=== PATIENT | female | born 1940 | race Caucasian/White ===

== ENCOUNTER → 2017-08-26 | Outpatient (CLI) | payer MEDICARE ==
--- NOTE | 2017-08-27 14:10 | MM ---
Reason for exam: screening (asymptomatic). Last mammogram was performed 1 year and 11 months ago. History: Patient is postmenopausal. Benign US LT VAD breast biopsy of the left breast, May 12, 2012. Physical Findings: A clinical breast exam by your physician is recommended on an annual basis and results should be correlated with mammographic findings. MG Screening Mammo w CAD Bilateral CC and MLO view(s) were taken. Prior study comparison: September 26, 2015, bilateral MG screening mammo w CAD. June 20, 2014, bilateral MG screening mammo w CAD. The breast tissue is heterogeneously dense. This may lower the sensitivity of mammography. Previous mammotome biopsy in the left breast. No significant changes when compared with prior studies. ASSESSMENT: Benign, BI-RAD 2 RECOMMENDATION: Routine screening mammogram of both breasts in 1 year.
== END | disposition home or self-care (01) ==
LOC: RADMAMWWP 10:57
PROVIDERS: ATTEND Family Medicine
DX: Z12.31 Encounter for screening mammogram for malignant neoplasm of breast (principal)

== ENCOUNTER 2019-10-02 10:19 | Inpatient (IN) | payer MEDICARE ==
[2019-10-02] MEDS ORDERED: ASPIRIN 81 MG PO STA (10:31)
[2019-10-02] MEDS ORDERED: IPRATROPIUM-ALBUTEROL 3 ML NEB INHALATION STA (10:39)
--- NOTE | 2019-10-02 10:39 | ED ---
General Adult HPI - General Source: patient, EMS, RN notes reviewed Mode of arrival: EMS Limitations: no limitations <Tae Faustin - Last Filed: 10/02/19 12:34> <Yazan Crain - Last Filed: 10/02/19 12:47> - General Stated complaint: SOB Time Seen by Provider: 10/02/19 10:29 - History of Present Illness Initial comments: This a 79-year-old female presents emergency Department via EMS with chief complaint of shortness breath, chest pain, hyperglycemia. Patient states that she's had a cough congestion last few days states that she is taking Mucinex with was not helping. Patient states she has some tightness across her chest. Patient denies any history of COPD or asthma. Patient states that she's had a prior open-heart surgery. Patient states her cough is productive. Patient does admit that history of hypertension hyperlipidemia diabetes but states that she usually just didn't control. Patient on her blood sugar over 400 today. Patient does admit that she feels very weak. Denies any current headache. Dizziness. Patient found to be in A. fib RVR by EMS. Patient denies any history of A. fib. Patient is not taking anticoagulants. Patient has no current abdominal pain. (Tae Faustin) - Related Data Allergies Allergy/AdvReac Type Severity Reaction Status Date / Time Sulfa (Sulfonamide Allergy Unknown Verified 10/02/19 10:49 Antibiotics) Review of Systems ROS Other: All systems not noted in ROS Statement are negative. <Tae Faustin - Last Filed: 10/02/19 12:34> ROS Other: All systems not noted in ROS Statement are negative. <Yazan Crain - Last Filed: 10/02/19 12:47> ROS Statement: Those systems with pertinent positive or pertinent negative responses have been documented in the HPI. General Exam General appearance: alert, in no apparent distress Head exam: Present: atraumatic, normocephalic, normal inspection Eye exam: Present: normal appearance, PERRL, EOMI. Absent: scleral icterus, conjunctival injection, periorbital swelling ENT exam: Present: normal oropharynx, mucous membranes moist Neck exam: Present: normal inspection, full ROM. Absent: tenderness, men ingismus, lymphadenopathy Respiratory exam: Present: wheezes, decreased breath sounds. Absent: normal lung sounds bilaterally, respiratory distress, rales, rhonchi, stridor Cardiovascular Exam: Present: tachycardia, irregular rhythm, normal heart so unds. Absent: regular rate, normal rhythm, systolic murmur, diastolic murmur, rubs, gallop, clicks GI/Abdominal exam: Present: soft, normal bowel sounds. Absent: distended, tenderness, guarding, rebound, rigid Neurological exam: Present: alert, oriented X3, CN II-XII intact Skin exam: Present: warm, dry, intact, normal color. Absent: rash <Tae Faustin - Last Filed: 10/02/19 12:34> Course Vital Signs 10/02/19 10/02/19 10/02/19 10:44 10:51 11:07 Temperature 98 F Pulse Rate 106 H 97 98 Respiratory 20 Rate Blood Pressure 124/76 O2 Sat by Pulse 95 Oximetry EKG Findings - EKG Comments: EKG Findings:: EKG performed at 11:06 normal sinus rhythm left axis deviation left ventricular hypertrophy rate of 94 ME 18 QRS 108 QT status QTC 390/47. EKG, rhythm strips prior to arrival by EMS shows A. fib RVR <Tae Faustin - Last Filed: 10/02/19 12:34> Medical Decision Making - Lab Data Result diagrams: 10/02/19 10:56 10/02/19 10:56 <Tae Faustin - Last Filed: 10/02/19 12:34> - Lab Data Result diagrams: 10/02/19 10:56 10/02/19 10:56 <Yazan Crain - Last Filed: 10/02/19 12:47> - Medical Decision Making Patient will be admitted for acute CHF, hyperglycemia, metabolic acidosis. (Tae Fuastin) patient was reevaluated by myself, Dr. Crain. Patient resting comfortably in bed. Patient and family updated on results and plan. Case was discussed in detail with Dr. Oropeza, who will admit covering for Dr. Moreno. Cardiology will be placed on consult. Heparin will be ordered. Patient will receive nitroglycerin and Lasix. (Yazan Crain) - Lab Data Lab Results 10/02/19 10/02/19 10/02/19 Range/Units 10:56 10:56 10:56 WBC 8.3 (3.8-10.6) k/uL RBC 4.08 (3.80-5.40) m/uL Hgb 13.0 (11.4-16.0) gm/dL Hct 39.9 (34.0-46.0) % MCV 97.8 (80.0-100.0) fL MCH 31.8 (25.0-35.0) pg MCHC 32.5 (31.0-37.0) g/dL RDW 13.0 (11.5-15.5) % Plt Count 266 (150-450) k/uL Neutrophils % 80 % Lymphocytes % 15 % Monocytes % 5 % Eosinophils % 0 % Basophils % 0 % Neutrophils # 6.6 (1.3-7.7) k/uL Lymphocytes # 1.2 (1.0-4.8) k/uL Monocytes # 0.4 (0-1.0) k/uL Eosinophils # 0.0 (0-0.7) k/uL Basophils # 0.0 (0-0.2) k/uL PT (9.0-12.0) sec INR (<1.2) APTT (22.0-30.0) sec VBG pH (7.31-7.41) VBG pCO2 (37-51) mmHg VBG HCO3 (24-28) mmol/L Sodium 136 L (137-145) mmol/L Potassium 5.1 (3.5-5.1) mmol/L Chloride 108 H (98-107) mmol/L Carbon Dioxide 17 L (22-30) mmol/L Anion Gap 11 mmol/L BUN 21 H (7-17) mg/dL Creatinine 0.86 (0.52-1.04) mg/dL Est GFR (CKD-EPI)AfAm 75 (>60 ml/min/1.73 sqM) Est GFR (CKD-EPI)NonAf 65 (>60 ml/min/1.73 sqM) Glucose 301 H (74-99) mg/dL Plasma Lactic Acid Heath 3.9 H* (0.7-2.0) mmol/L Calcium 9.3 (8.4-10.2) mg/dL Magnesium 1.7 (1.6-2.3) mg/dL Total Bilirubin 1.3 (0.2-1.3) mg/dL AST 64 H (14-36) U/L ALT 40 H (4-34) U/L Alkaline Phosphatase 59 (38-126) U/L Troponin I (0.000-0.034) ng/mL NT-Pro-B Natriuret Pep pg/mL Total Protein 6.1 L (6.3-8.2) g/dL Albumin 3.7 (3.5-5.0) g/dL Lipase 43 (23-300) U/L Acetone, Qual Negative (Negative) 10/02/19 10/02/19 10/02/19 Range/Units 10:56 10:56 10:56 WBC (3.8-10.6) k/uL RBC (3.80-5.40) m/uL Hgb (11.4-16.0) gm/dL Hct (34.0-46.0) % MCV (80.0-100.0) fL MCH (25.0-35.0) pg MCHC (31.0-37.0) g/dL RDW (11.5-15.5) % Plt Count (150-450) k/uL Neutrophils % % Lymphocytes % % Monocytes % % Eosinophils % % Basophils % % Neutrophils # (1.3-7.7) k/uL Lymphocytes # (1.0-4.8) k/uL Monocytes # (0-1.0) k/uL Eosinophils # (0-0.7) k/uL Basophils # (0-0.2) k/uL PT 11.3 (9.0-12.0) sec INR 1.1 (<1.2) APTT 21.1 L (22.0-30.0) sec VBG pH (7.31-7.41) VBG pCO2 (37-51) mmHg VBG HCO3 (24-28) mmol/L Sodium (137-145) mmol/L Potassium (3.5-5.1) mmol/L Chloride (98-107) mmol/L Carbon Dioxide (22-30) mmol/L Anion Gap mmol/L BUN (7-17) mg/dL Creatinine (0.52-1.04) mg/dL Est GFR (CKD-EPI)AfAm (>60 ml/min/1.73 sqM) Est GFR (CKD-EPI)NonAf (>60 ml/min/1.73 sqM) Glucose (74-99) mg/dL Plasma Lactic Acid Heath (0.7-2.0) mmol/L Calcium (8.4-10.2) mg/dL Magnesium (1.6-2.3) mg/dL Total Bilirubin (0.2-1.3) mg/dL AST (14-36) U/L ALT (4-34) U/L Alkaline Phosphatase (38-126) U/L Troponin I 0.849 H* (0.000-0.034) ng/mL NT-Pro-B Natriuret Pep 60068 pg/mL Total Protein (6.3-8.2) g/dL Albumin (3.5-5.0) g/dL Lipase (23-300) U/L Acetone, Qual (Negative) 10/02/19 Range/Units 10:57 WBC (3.8-10.6) k/uL RBC (3.80-5.40) m/uL Hgb (11.4-16.0) gm/dL Hct (34.0-46.0) % MCV (80.0-100.0) fL MCH (25.0-35.0) pg MCHC (31.0-37.0) g/dL RDW (11.5-15.5) % Plt Count (150-450) k/uL Neutrophils % % Lymphocytes % % Monocytes % % Eosinophils % % Basophils % % Neutrophils # (1.3-7.7) k/uL Lymphocytes # (1.0-4.8) k/uL Monocytes # (0-1.0) k/uL Eosinophils # (0-0.7) k/uL Basophils # (0-0.2) k/uL PT (9.0-12.0) sec INR (<1.2) APTT (22.0-30.0) sec VBG pH 7.25 L (7.31-7.41) VBG pCO2 38 (37-51) mmHg VBG HCO3 16 L (24-28) mmol/L Sodium (137-145) mmol/L Potassium (3.5-5.1) mmol/L Chloride (98-107) mmol/L Carbon Dioxide (22-30) mmol/L Anion Gap mmol/L BUN (7-17) mg/dL Creatinine (0.52-1.04) mg/dL Est GFR (CKD-EPI)AfAm (>60 ml/min/1.73 sqM) Est GFR (CKD-EPI)NonAf (>60 ml/min/1.73 sqM) Glucose (74-99) mg/dL Plasma Lactic Acid Heath (0.7-2.0) mmol/L Calcium (8.4-10.2) mg/dL Magnesium (1.6-2.3) mg/dL Total Bilirubin (0.2-1.3) mg/dL AST (14-36) U/L ALT (4-34) U/L Alkaline Phosphatase (38-126) U/L Troponin I (0.000-0.034) ng/mL NT-Pro-B Natriuret Pep pg/mL Total Protein (6.3-8.2) g/dL Albumin (3.5-5.0) g/dL Lipase (23-300) U/L Acetone, Qual (Negative) Critical Care Time Critical Care Time: Yes Total Critical Care Time: 35 <Tae Faustin - Last Filed: 10/02/19 12:34> Critical Care Time: Total 35 minutes of critical care time were used to initially evaluated patient, reviewed past medical history, discuss history with EMS, family. Labs EKG chest x-ray were ordered. Patient's found a acute CHF exacerbation she has proximal atrial fibrillation. Patient was given aspirins, started on heparin at this time. Patient was given 40 of Lasix IV for CHF exacerbation. Patient does have lactic acidosis which appears to be a metabolic acidosis related to hypoglycemia. She was given small amount of IV fluids prior arrival. Patient we treated medically. Patient case discussed with admitting physician, consult cardiology (Tae Faustin) Disposition <Tae Faustin - Last Filed: 10/02/19 12:34> <Yazan Crain - Last Filed: 10/02/19 12:47> Clinical Impression: Congestive heart failure, Metabolic acidosis, Hyperglycemia, Paroxysmal atrial fibrillation with rapid ventricular response, Elevated troponin Disposition: ADMITTED IP TO THIS HOSP Condition: Serious Referrals: Velia Moreno DO [Primary Care Provider] - 1-2 days
[2019-10-02 11:12] LABS: VBG PH 7.25 (7.31-7.41)
[2019-10-02 11:22] LABS: ALT 40 U/L (4-34); AST 64 U/L (14-36); African American GFR (CKD) 75 (>60 ml/min/1.73 sqM); Albumin 3.7 g/dL (3.5-5.0); Alkaline Phosphatase 59 U/L (38-126); Anion Gap 11 mmol/L; Blood Urea Nitrogen 21 mg/dL (7-17); Calcium 9.3 mg/dL (8.4-10.2); Carbon Dioxide 17 mmol/L (22-30); Chloride 108 mmol/L (98-107); Glucose 301 mg/dL (74-99); Magnesium 1.7 mg/dL (1.6-2.3); Non-African American GFR(CKD) 65 (>60 ml/min/1.73 sqM); Potassium 5.1 mmol/L (3.5-5.1); Sodium 136 mmol/L (137-145); Total Bilirubin 1.3 mg/dL (0.2-1.3); Total Protein 6.1 g/dL (6.3-8.2)
[2019-10-02 11:30] LABS: INR 1.1 (<1.2); Prothrombin Time 11.3 sec (9.0-12.0)
[2019-10-02 11:35] LABS: Basophils % (A) 0 %; Eosinophils % (A) 0 %; HCT 39.9 % (34.0-46.0); Lymphocytes # (A) 1.2 k/uL (1.0-4.8); Lymphocytes % (A) 15 %; MCH 31.8 pg (25.0-35.0); MCHC 32.5 g/dL (31.0-37.0); MCV 97.8 fL (80.0-100.0); Mean Platelet Volume 8.5; Monocytes # (A) 0.4 k/uL (0-1.0); Monocytes % (A) 5 %; Neutrophils # (A) 6.6 k/uL (1.3-7.7); Neutrophils % (A) 80 %; Platelet Count 266 k/uL (150-450); RBC 4.08 m/uL (3.80-5.40); WBC 8.3 k/uL (3.8-10.6)
[2019-10-02 11:39] LABS: Partial Thromboplastin Time 21.1 sec (22.0-30.0)
--- NOTE | 2019-10-02 12:00 | XR ---
EXAMINATION TYPE: XR chest 2V DATE OF EXAM: 10/02/2019 HISTORY: Chest Pain. REFERENCE: Previous study dated 11/20/2011. FINDINGS: There has been a midline sternotomy. There is multichamber cardiac enlargement. There is right basilar airspace disease. I cannot exclude small effusions. There is vascular congestion and mild interstitial change. IMPRESSION: 1. CARDIOMEGALY AND CHANGES OF CONGESTIVE HEART FAILURE. 2. CONFLUENT OPACITY OF THE RIGHT LUNG BASE MAY REPRESENT CONFLUENT EDEMA OR PNEUMONIA.
[2019-10-02] MEDS ORDERED: FUROSEMIDE 10 MG/ML 4 ML VIAL IV STA (12:34)
[2019-10-02] MEDS ORDERED: NITROGLYCERIN OINT 1 INCH/GM PACKET TOPICAL STA (12:40)
[2019-10-02] MEDS ORDERED: HEPARIN SODIUM,PORCINE 5,000 UNIT/ML 1 ML VIAL IV ONE (12:42)
[2019-10-02] MEDS ORDERED: HEPARIN SODIUM,PORCINE 5,000 UNIT/ML 1 ML VIAL IV PRN (12:42)
[2019-10-02] MEDS: HEPARIN SOD,PORK IN 0.45% NACL 25,000 UNIT in 0.45% NACL 1 250ML.BAG IV SCH (13:00)
--- NOTE | 2019-10-02 15:24 | P.HPIM ---
History of Present Illness 73-year-old female was brought in by family members because of shortness of breath which started last Thursday which is about 4-5 days ago along with orthopnea unable to get much of the history regarding proximal nocturnal dyspnea patient has hearing problems. Patient will also comparing of tightness of chest denied any diaphoresis associated with that. Patient does have elevated troponin found to have pulmonary edema. Patient does have history of coronary artery disease CABG does not appear to be taking any medications patient appears to be noncompliant and patient does smoke still. Does have COPD doesn't wear any oxygen at home is also complaining of cough with clear sputum production. Patient denied any fever chills and there is no evidence of pneumonia but a small infiltrate that may be still pulmonary edema. Patient is found to have elevated BNP of 14,300 with elevated JVD and clinical exam and crackles on lung exam consistent with heart failure exacerbation patient does have heart failure history although I do not do not have any echocardiogram available at this time which is being ordered patient also has elevated troponins with T-wave inversions in lead 1 and aVL. Cardiology is being consulted and patient is being started on heparin aspirin, statin and IV Lasix. Patient has elevated blood sugars in 300s A1c is being obtained patient was started on sliding scale insulin as well. Patient had elevated lactic acid is no evidence of sepsis considering her old heart failure and shortness of breath going to do her Lasix and repeat lactic acid again. Patient will not be given any fluids because of above-mentioned reasons. Review of Systems REVIEW OF SYSTEMS: CONSTITUTIONAL: No fever, no malaise, no fatigue. HEENT: No recent visual problems or hearing problems. Denied any sore throat. CARDIOVASCULAR: No no palpitations, no syncope. PULMONARY: no hemoptysis. GASTROINTESTINAL: No diarrhea, no nausea, no vomiting, no abdominal pain. NEUROLOGICAL: No headaches, no weakness, no numbness. HEMATOLOGICAL: Denies any bleeding or petechiae. GENITOURINARY: Denies any burning micturition, frequency, or urgency. MUSCULOSKELETAL/RHEUMATOLOGICAL: Denies any joint pain, swelling, or any muscle pain. ENDOCRINE: Denies any polyuria or polydipsia. The rest of the 14-point review of systems is negative. Past Medical History Past Medical History: Heart Failure, Diabetes Mellitus History of Any Multi-Drug Resistant Organisms: None Reported Past Surgical History: Coronary Bypass/CABG Additional Past Surgical History / Comment(s): TRIPLE BYPASS Past Psychological History: No Psychological Hx Reported Smoking Status: Current every day smoker Past Alcohol Use History: None Reported Past Drug Use History: None Reported Medications and Allergies Home Medications Medication Instructions Recorded Confirmed Type Aspirin EC [Ecotrin Low Dose] 81 mg PO HS 10/02/19 10/02/19 History guaiFENesin [Mucinex] 600 mg PO Q12H PRN 10/02/19 10/02/19 History Allergies Allergy/AdvReac Type Severity Reaction Status Date / Time Sulfa (Sulfonamide Allergy Unknown Verified 10/02/19 14:19 Antibiotics) Physical Exam Vitals: Vital Signs Temp Pulse Resp BP Pulse Ox 10/02/19 13:28 98.1 F 99 20 139/86 97 10/02/19 11:07 98 10/02/19 10:51 97 10/02/19 10:44 98 F 106 H 20 124/76 95 Intake and Output 10/02/19 10/02/19 10/02/19 06:59 14:59 22:59 Other: Weight 54.431 kg PHYSICAL EXAMINATION: GENERAL: The patient is alert and oriented x3, not in any acute distress. Well developed, well nourished. HEENT: Pupils are round and equally reacting to light. EOMI. No scleral icterus. No conjunctival pallor. Normocephalic, atraumatic. No pharyngeal erythema. No thyromegaly. CARDIOVASCULAR: S1 and S2 present. No murmurs, rubs, or gallops. Patient does have elevated JVD extending up to the years PULMONARY: Bilateral crackles on exam no wheezing was appreciated ABDOMEN: Soft, nontender, nondistended, normoactive bowel sounds. No palpable organomegaly. MUSCULOSKELETAL: No joint swelling or deformity. EXTREMITIES: No cyanosis, clubbing, or pedal edema. NEUROLOGICAL: Gross neurological examination did not reveal any focal deficits. SKIN: No rashes. Results CBC & Chem 7: 10/02/19 10:56 10/02/19 10:56 Labs: Abnormal Lab Results - Last 24 Hours (Table) 10/02/19 10/02/19 10/02/19 Range/Units 10:56 10:56 10:56 APTT 21.1 L (22.0-30.0) sec VBG pH (7.31-7.41) VBG HCO3 (24-28) mmol/L Sodium 136 L (137-145) mmol/L Chloride 108 H (98-107) mmol/L Carbon Dioxide 17 L (22-30) mmol/L BUN 21 H (7-17) mg/dL Glucose 301 H (74-99) mg/dL Plasma Lactic Acid Heath 3.9 H* (0.7-2.0) mmol/L AST 64 H (14-36) U/L ALT 40 H (4-34) U/L Troponin I (0.000-0.034) ng/mL Total Protein 6.1 L (6.3-8.2) g/dL 10/02/19 10/02/19 Range/Units 10:56 10:57 APTT (22.0-30.0) sec VBG pH 7.25 L (7.31-7.41) VBG HCO3 16 L (24-28) mmol/L Sodium (137-145) mmol/L Chloride (98-107) mmol/L Carbon Dioxide (22-30) mmol/L BUN (7-17) mg/dL Glucose (74-99) mg/dL Plasma Lactic Acid Heath (0.7-2.0) mmol/L AST (14-36) U/L ALT (4-34) U/L Troponin I 0.849 H* (0.000-0.034) ng/mL Total Protein (6.3-8.2) g/dL Thrombosis Risk Factor Assmnt - Choose All That Apply Any of the Below Risk Factors Present?: Yes Each Factor Represents 1 point: Abnormal pulmonary function (COPD) Other Risk Factors: Yes Each Risk Factor Represents 3 Points: Age 75 years or older Thrombosis Risk Factor Assessment Total Risk Factor Score: 4 Thrombosis Risk Factor Assessment Level: Moderate Risk Assessment and Plan Plan: -Shortness of breath: Possibly secondary to congestive heart failure exacerbation patient may have systolic dysfunction although her EF is not known echocardiogram is being obtained and patient will be started on Lasix in spite of lactic acidosis and we'll repeat lactic acid again. -Mildly elevated troponin with chest pressure and EKG changes cannot rule out non-ST elevation myocardial infarction, cardiology was consulted patient was started on aspirin, heparin and nitro patch. -Lactic acidosis: Secondary to decreased organ perfusion considering her CHF I believe in spite of Lasix has lactic acid was still come down because of which I'll continue with Lasix and the repeat lactic acid in couple hours -Coronary artery disease his history of CABG in the past -Nicotine abuse: Counseling was provided -COPD without any acute exacerbation -Possible new-onset diabetes with us will obtain hemoglobin A1c patient was started on sliding scale insulin for now patient has highly elevated blood sugars of 300 Mildly elevated liver enzymes secondary to hepatic congestion expected to imp rove with Lasix -Anion gap metabolic acidosis secondary to lactic acidosis
[2019-10-02 16:57] LABS: Glucose,Whole Blood 219 mg/dL (75-99)
[2019-10-02] MEDS: INSULIN ASPART (NovoLOG) 100 UNIT/ML VIAL SQ SCH ×2 (17:13→21:39)
[2019-10-02 20:16] LABS: Glucose,Whole Blood 255 mg/dL (75-99)
[2019-10-02] MEDS: FUROSEMIDE 10 MG/ML 4 ML VIAL IV SCH (21:38)
[2019-10-02] MEDS: traMADol 50 MG TAB PO SCH (21:38)
[2019-10-03 06:10] LABS: Glucose,Whole Blood 201 mg/dL (75-99)
[2019-10-03 06:51] LABS: Basophils % (A) 0 %; Eosinophils % (A) 0 %; HCT 40.6 % (34.0-46.0); HGB 13.3 gm/dL (11.4-16.0); Lymphocytes # (A) 1.4 k/uL (1.0-4.8); Lymphocytes % (A) 14 %; MCH 32.3 pg (25.0-35.0); MCHC 32.9 g/dL (31.0-37.0); MCV 98.3 fL (80.0-100.0); Mean Platelet Volume 8.7; Monocytes # (A) 0.8 k/uL (0-1.0); Monocytes % (A) 8 %; Neutrophils # (A) 7.8 k/uL (1.3-7.7); Neutrophils % (A) 77 %; Platelet Count 303 k/uL (150-450); RBC 4.13 m/uL (3.80-5.40); RDW 13.2 % (11.5-15.5); WBC 10.2 k/uL (3.8-10.6)
[2019-10-03 06:59] LABS: INR 1.1 (<1.2); Partial Thromboplastin Time 36.3 sec (22.0-30.0); Prothrombin Time 11.5 sec (9.0-12.0)
[2019-10-03 07:14] LABS: Calcium 9.7 mg/dL (8.4-10.2)
[2019-10-03] MEDS: INSULIN ASPART (NovoLOG) 100 UNIT/ML VIAL SQ SCH ×4 (08:20→20:39)
--- NOTE | 2019-10-03 08:38 | P.CRDCN ---
History of Present Illness Consult date: 10/03/19 Requesting physician: Christofer Oropeza Consult reason: non-Q-wave AK Chief complaint: Exertional shortness of breath and shoulder discomfort History of present illness: This is a 79-year-old female with known history of coronary artery disease, underwent quadruple bypass surgery in 2001, history of hyperlipidemia, hypertension, nicotine dependence, patient continues to smoke, she is a nondiabetic. He is fairly active 79-year-old, lives on her own, goes shopping. Over the last 3 days, the patient has noticed herself to be exertionally more and more short of breath, she also developed some discomfort across her upper scapula and shoulder areas. Patient states just walking to her bathroom she can hardly breathe or even sitting up in bed and became quite severe. She came to the hospital for further evaluation and treatment. Her initial EKG on presentation here showed a normal sinus rhythm with with mild ST elevation noted in the anterior leads and T-wave inversion in the lateral leads. Subsequent EKG continued to show changes. Chest x-ray showed cardiomegaly and changes of congestive heart failure. Blood pressure on arrival here 124/76 with a heart rate of 106, 95% on 2 L of oxygen. Blood pressure this morning 146/76, 92% on 2 L of oxygen, heart rate 106, afebrile. White blood cell count 8.3 on arrival, 10.2 this morning, hemoglobin 13.3, platelet count 303. PH on arrival 7.2, pCO2 38, HCO3 16. Sodium 136, potassium 5.0, BUN 30, creatinine 1.1. Plasma lactic acid 4.1 on admission, 1.5 this morning. AST 64, ALT 40, magnesium 1.7. BNP level 14,300. Troponin 0.84, 15.3, 25.1. At the time of examination this morning, patient does state that her breathing has improved significantly from arrival here. Although just getting the patient is sitting up in bed to examine her she becomes extremely short of breath. Patient has been initiated on IV hep kyler, she's also on IV Lasix. Patient has been taking an aspirin daily at home, prior to arrival. She is not on a statin or any other medications. She follows with Dr. 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 Patient is extremely hard of hearing. Past Medical History Past Medical History: Heart Failure, Diabetes Mellitus History of Any Multi-Drug Resistant Organisms: None Reported Past Surgical History: Coronary Bypass/CABG Additional Past Surgical History / Comment(s): TRIPLE BYPASS Past Psychological History: No Psychological Hx Reported Smoking Status: Current every day smoker Past Alcohol Use History: None Reported Past Drug Use History: None Reported Medications and Allergies Home Medications Medication Instructions Recorded Confirmed Type Aspirin EC [Ecotrin Low Dose] 81 mg PO HS 10/02/19 10/02/19 History guaiFENesin [Mucinex] 600 mg PO Q12H PRN 10/02/19 10/02/19 History Allergies Allergy/AdvReac Type Severity Reaction Status Date / Time Sulfa (Sulfonamide Allergy Unknown Verified 10/02/19 14:19 Antibiotics) Physical Exam Vitals: Vital Signs Temp Pulse Pulse Resp BP BP Pulse Ox 10/03/19 04:00 98.4 F 106 H 20 147/77 92 L 10/03/19 00:00 96.5 F L 104 H 22 122/69 93 L 10/02/19 20:00 96.0 F L 100 22 126/70 96 10/02/19 13:28 98.1 F 99 20 139/86 97 10/02/19 11:07 98 10/02/19 10:51 97 10/02/19 10:44 98 F 106 H 20 124/76 95 Intake and Output 10/02/19 10/03/19 10/03/19 22:59 06:59 14:59 Intake Total 405.397 63.823 Output Total 540 440 400 Balance -134.603 -376.177 -400 Intake: Intake, IV Titration 45.397 63.823 Amount Heparin Sod,Pork in 0.45% 45.397 63.823 NaCl 25,000 unit In 0.45 % NaCl 1 250ml.bag @ 12 UNITS/KG/HR 6.532 mls/hr IV .Q24H [facility] Rx#: [id number] Oral 360 Output: Urine 540 440 400 Other: Voiding Method Toilet Toilet Bedside Commode Bedside Commode # Voids 1 1 2 Weight 67 kg PHYSICAL EXAMINATION: GENERAL: 79-year-old female in no acute distress at the time of my examination HEENT: Head is atraumatic, normocephalic. Pupils equal, round. Sclera anicteric. Conjunctiva are clear. Mucous membranes of the mouth are moist. Neck is supple. There is elevated jugular venous pressure. No carotid bruit is heard. HEART EXAMINATION: Heart S1-S2 systolic murmur is heard CHEST EXAMINATION: Lungs reveal scattered coarse wheezing throughout ABDOMEN: Soft, nontender. Bowel sounds are heard. No organomegaly noted. EXTREMITIES: 2+ peripheral pulses with trace evidence of peripheral edema and no calf tenderness noted. NEUROLOGIC patient is awake, alert and oriented 3 . . Results 10/03/19 06:35 10/03/19 06:35 Cardiac Enzymes 10/02/19 10/02/19 10/02/19 Range/Units 10:56 10:56 18:21 AST 64 H (14-36) U/L Troponin I 0.849 H* 15.300 H* (0.000-0.034) ng/mL 10/02/19 Range/Units 22:41 AST (14-36) U/L Troponin I 25.100 H* (0.000-0.034) ng/mL Coagulation 10/02/19 10/02/19 10/03/19 Range/Units 10:56 18:21 02:10 PT 11.3 (9.0-12.0) sec APTT 21.1 L 34.8 H 35.3 H (22.0-30.0) sec 10/03/19 Range/Units 06:35 PT 11.5 (9.0-12.0) sec APTT 36.3 H (22.0-30.0) sec CBC 10/02/19 10/03/19 Range/Units 10:56 06:35 WBC 8.3 10.2 (3.8-10.6) k/uL RBC 4.08 4.13 (3.80-5.40) m/uL Hgb 13.0 13.3 (11.4-16.0) gm/dL Hct 39.9 40.6 (34.0-46.0) % Plt Count 266 303 (150-450) k/uL Comprehensive Metabolic Panel 10/02/19 10/03/19 Range/Units 10:56 06:35 Sodium 136 L 136 L (137-145) mmol/L Potassium 5.1 5.0 (3.5-5.1) mmol/L Chloride 108 H 109 H (98-107) mmol/L Carbon Dioxide 17 L 17 L (22-30) mmol/L BUN 21 H 30 H (7-17) mg/dL Creatinine 0.86 1.13 H (0.52-1.04) mg/dL Glucose 301 H 198 H (74-99) mg/dL Calcium 9.3 9.7 (8.4-10.2) mg/dL AST 64 H (14-36) U/L ALT 40 H (4-34) U/L Alkaline Phosphatase 59 (38-126) U/L Total Protein 6.1 L (6.3-8.2) g/dL Albumin 3.7 (3.5-5.0) g/dL Current Medications Generic Name Dose Route Start Last Admin Trade Name Sauloq PRN Reason Stop Dose Admin Aspirin 325 mg 10/03/19 09:00 Aspirin PO DAILY [facility] Atorvastatin Calcium 80 mg 10/03/19 09:00 Lipitor PO DAILY [facility] Furosemide 40 mg 10/02/19 21:00 10/02/19 21:38 Lasix IV 40 mg Q12HR [facility] Administration Heparin Sodium (Porcine) 0 unit 10/02/19 12:42 Heparin IV PER PROTOCOL PRN Low PTT Protocol Heparin Sodium/Sodium Chloride 250 mls @ 6.532 mls/hr 10/02/19 12:45 10/03/19 03:46 25,000 unit/ Sodium Chloride IV 18 units/kg/hr .Q24H [facility] 9.798 mls/hr Titration Protocol 12 UNITS/KG/HR Insulin Aspart 0 unit 10/02/19 17:30 10/03/19 08:20 Novolog SQ Not Given ACHS [facility] Protocol Metoprolol Tartrate 25 mg 10/03/19 09:00 Lopressor PO BID [facility] Tramadol HCl 50 mg 10/02/19 22:00 10/02/19 21:38 Ultram PO 50 mg QID [facility] Administration Intake and Output 10/02/19 10/03/19 10/03/19 22:59 06:59 14:59 Intake Total 405.397 63.823 Output Total 540 440 400 Balance -134.603 -376.177 -400 Intake: Intake, IV Titration 45.397 63.823 Amount Heparin Sod,Pork in 0.45% 45.397 63.823 NaCl 25,000 unit In 0.45 % NaCl 1 250ml.bag @ 12 UNITS/KG/HR 6.532 mls/hr IV .Q24H [facility] Rx#: [id number] Oral 360 Output: Urine 540 440 400 Other: Voiding Method Toilet Toilet Bedside Commode Bedside Commode # Voids 1 1 2 Weight 67 kg 10/03/19 06:35 10/03/19 06:35 EKG Interpretations (text) EKG shows a sinus tachycardia with ST changes noted in the anterior lateral leads. Assessment and Plan Plan: Assessment and plan #1 non-ST elevation AK #2 congestive heart failure, acute, LV function unknown #3 history of coronary artery disease with prior quadruple bypass surgery #4 hypertension #5 hyperlipidemia #6 nicotine dependence, patient continues to smoke #7 history of TIA Plan We will obtain a stat echocardiogram with Doppler study. Patient has been initiated on aspirin and is on an IV heparin drip. We will give Lipitor 80 mg now and start the patient on Lopressor 25 mg now and twice a day. Patient has been advised to undergo an urgent cardiac catheterization, the risks and bene fits were explained to the patient and her daughter in detail. They are willing to proceed. Further recommendations to follow. DNP note has been reviewed, I agree with a documented findings and plan of care. Patient was seen and examined.
[2019-10-03] MEDS ORDERED: ASPIRIN 325 MG TAB PO SCH (09:00)
[2019-10-03] MEDS ORDERED: ATORVASTATIN 80 MG TAB PO SCH (09:00)
[2019-10-03] MEDS: METOPROLOL TARTRATE 25 MG TAB PO SCH ×2 (09:34→20:33)
[2019-10-03] MEDS: traMADol 50 MG TAB PO SCH ×4 (09:34→20:34)
[2019-10-03] MEDS: FUROSEMIDE 10 MG/ML 4 ML VIAL IV SCH (09:35)
[2019-10-03] MEDS ORDERED: guaiFENesin 600 MG TABLET.ER PO PRN (10:18)
--- NOTE | 2019-10-03 10:22 | ECHOF ---
Referral Reason:assess lvf MEASUREMENTS -------- HEIGHT: 162.6 cm WEIGHT: 66.7 kg BP: 147/77 RVIDd: 3.9 cm (< 3.3) IVSd: 1.2 cm (0.6 - 1.1) LVIDd: 5.3 cm (3.9 - 5.3) LVPWd: 1.4 cm (0.6 - 1.1) IVSs: 1.4 cm LVIDs: 4.7 cm LVPWs: 1.7 cm LA Diam: 5.9 cm (2.7 - 3.8) LAESV Index (A-L): 68.77 ml/m Ao Diam: 2.4 cm (2.0 - 3.7) AV Cusp: 1.5 cm (1.5 - 2.6) LA Diam: 5.1 cm (2.7 - 3.8) MV EXCURSION: 13.883 mm (> 18.000) MV EF SLOPE: 64 mm/s (70 - 150) EPSS: 1.1 cm MV E Bereket: 0.59 m/s MV DecT: 119 ms MV A Bereket: 0.53 m/s MV E/A Ratio: 1.11 RAP: 15.00 mmHg RVSP: 39.84 mmHg FINDINGS -------- Sinus rhythm. This was a techncally difficult study with suboptimal views, , Lumason utilized for enhancement of im ages. The left ventricular size is normal. There is borderline concentric left ventricular hypertrophy. Overall left ventricular systolic function is severely impaired with, an EF between 20 - 25 %. Bas al anterior LV wall motion is akinetic. Basal lateral LV wall motion is akinetic. Basal anteros eptal LV wall motion is akinetic. Mid anterior LV wall motion is akinetic. Mid lateral LV wall motion is akinetic. Mid anteroseptal LV wall motion is akinetic. Apical anterior LV wall motion is akinetic. Apical lateral LV wall motion is akinetic. Apical inferior LV wall motion is hypo kinetic. Apical septum LV wall motion is akinetic. The right ventricle is normal in size. LA is severely dilated >40 ml/m2 The right atrial size is normal. 5.0mg OF Lumason UTLIZED: 2 OR MORE WALL SEGMENTS NOT VISUALIZED. There is mild aortic valve sclerosis. There is no evidence of aortic regurgitation. Mild mitral annular calcification present. Moderate mitral regurgitation is present. Mild prolaps e of the posterior mitral valve leaflet. Mild tricuspid regurgitation present. There is mild pulmonary hypertension. The right ventricular systolic pressure, as measured by Doppler, is 39.84mmHg. There is no pulmonic regurgitation present. The aortic root size is normal. There is no pericardial effusion. CONCLUSIONS -------- 1. Sinus rhythm. 2. This was a techncally difficult study with suboptimal views, , Lumason utilized for enhancement of images. 3. There is borderline concentric left ventricular hypertrophy. 4. Overall left ventricular systolic function is severely impaired with, an EF between 20 - 25 %. 5. Basal anterior LV wall motion is akinetic. 6. Basal lateral LV wall motion is akinetic. 7. Basal anteroseptal LV wall motion is akinetic. 8. Mid anterior LV wall motion is akinetic. 9. Mid lateral LV wall motion is akinetic. 10. Mid anteroseptal LV wall motion is akinetic. 11. Apical anterior LV wall motion is akinetic. 12. Apical lateral LV wall motion is akinetic. 13. Apical inferior LV wall motion is hypokinetic. 14. Apical septum LV wall motion is akinetic. 15. LA is severely dilated >40 ml/m2 16. The right atrial size is normal. 17. 5.0mg OF Lumason UTLIZED: 2 OR MORE WALL SEGMENTS NOT VISUALIZED. 18. There is mild aortic valve sclerosis. 19. Mild mitral annular calcification present. 20. Moderate mitral regurgitation is present. 21. Mild prolapse of the posterior mitral valve leaflet. 22. Mild tricuspid regurgitation present. 23. There is mild pulmonary hypertension. 24. There is no pulmonic regurgitation present. 25. The aortic root size is normal. 26. There is no pericardial effusion. [employer]: Maryanne Jensen RDCS
[2019-10-03] MEDS: NITROGLYCERIN SL TABS 0.4 MG TAB SUBLINGUAL PRN ×2 (10:36→10:38)
[2019-10-03] MEDS ORDERED: NITROGLYCERIN-D5W PMX 50 MG in DEXTROSE/WATER 1 250ML.BAG IV SCH (10:45)
[2019-10-03 11:01] VITALS: BMI 25.3
[2019-10-03] MEDS: FUROSEMIDE 100 MG in SODIUM CHLORIDE 0.9% 90 ML IV SCH ×2 (11:25→18:35)
[2019-10-03] MEDS ORDERED: FUROSEMIDE 10 MG/ML 4 ML VIAL IV STA (11:39)
[2019-10-03 11:42] LABS: Glucose,Whole Blood 228 mg/dL (75-99)
[2019-10-03 11:55] LABS: ABG Base Excess -12.3 mmol/L; ABG HCO3 14 mmol/L (21-25); ABG Oxygen Saturation 94.7 % (94-97); ABG PCO2 25 mmHg (35-45); ABG PH 7.34 (7.35-7.45); ABG PO2 83 mmHg (83-108); ABG TCO2 14 mmol/L (19-24); Allen Test Performed? Yes
--- NOTE | 2019-10-03 12:00 | XR ---
EXAMINATION TYPE: XR chest 1V portable DATE OF EXAM: 10/03/2019 COMPARISON: Prior chest 10/02/2019 HISTORY: Pulmonary edema TECHNIQUE: Single frontal view of the chest is obtained. FINDINGS: Patient is post median sternotomy and the heart is enlarged. Patient is rotated and overly ing cardiac leads. Central vascularity and interstitium are increased. No evident pneumothorax. Diffi cult to exclude small basilar effusions. Increased AP diameter chest and flattening the hemidiaphragm s may be indicative of underlying COPD. Suspect coronary artery calcifications. IMPRESSION: Congestive heart failure. Follow-up recommended.
[2019-10-03] MEDS ORDERED: SODIUM BICARB 8.4% 50 ML SYR (1 MEQ/ML) IV STA (12:13)
[2019-10-03] MEDS ORDERED: DEXTROSE 5% IN WATER 1,000 ML with SODIUM BICARB (1 MEQ/ML) 100 ML IV SCH (12:15)
[2019-10-03 13:09] LABS: Glucose,Whole Blood 198 mg/dL (75-99)
--- NOTE | 2019-10-03 14:09 | P.PN ---
Subjective Patient is a pleasant 79-year-old the female admitted for acute non-ST elevation microinfarction, and heart failure exacerbation*dysfunction chronic with acute exacerbation. Patient is found to have ejection fraction of 20-25% with significant wall motion of abnormalities patient appears to be highly noncompliant with medications and nicotine cessation. Patient is still severely short of breath patient was transferred to ICU. Currently I'll evaluate the patient to be since patient is quite a bit chart of breath, cardiology is recommending to treat the heart failure before she can go for cardiac catheterization. Although most of her shortness of breath is probably secondary to acute myocardial infarction. Patient wanted to be full code and resuscitated if needed. Constitutional: Denied any fatigue denied any fever. Cardio vascular: As mentioned in HPI patient can use to have chest pain Gastrointestinal denied any nausea vomiting Pulmonary: As mentioned in HPI Neurologic denied any new focal deficits All inpatient medications were reviewed and appropriate changes in these medications as dictated in the interval history and assessment and plan. Objective - Vital Signs Vital signs: Vital Signs Temp 96.9 F L 10/03/19 11:30 Pulse 65 10/03/19 13:00 Resp 28 H 10/03/19 13:00 BP 106/58 10/03/19 13:00 Pulse Ox 95 10/03/19 13:00 Intake & Output 10/02/19 10/03/19 10/03/19 18:59 06:59 18:59 Intake Total 360 109.220 117.816 Output Total 400 580 743 Balance -40 -470.780 -625.184 Weight 54.431 kg 67 kg 67 kg Intake: IV 20 0.9 normal saline at KVO 20 Intake, IV Titration 109.220 97.816 Amount Heparin Sod,Pork in 0.45% 109.220 97.816 NaCl 25,000 unit In 0.45 % NaCl 1 250ml.bag @ 12 UNITS/KG/HR 6.532 mls/hr IV .Q24H [facility] Rx#: [id number] Oral 360 Output: Urine 400 580 743 Other: Voiding Method Toilet Bedside Commode # Voids 1 1 - Exam PHYSICAL EXAMINATION: GENERAL: The patient is alert and oriented x3, not in any acute distress. Well developed, well nourished. HEENT: Pupils are round and equally reacting to light. EOMI. No scleral icterus. No conjunctival pallor. Normocephalic, atraumatic. No pharyngeal erythema. No thyromegaly. CARDIOVASCULAR: S1 and S2 present. No murmurs, rubs, or gallops. Patient does have elevated JVD extending up to the years PULMONARY: Bilateral crackles on exam no wheezing was appreciated ABDOMEN: Soft, nontender, nondistended, normoactive bowel sounds. No palpable organomegaly. MUSCULOSKELETAL: No joint swelling or deformity. EXTREMITIES: No cyanosis, clubbing, or pedal edema. NEUROLOGICAL: Gross neurological examination did not reveal any focal deficits. SKIN: No rashes. - Labs CBC & Chem 7: 10/03/19 06:35 10/03/19 06:35 Labs: Abnormal Lab Results - Last 24 Hours (Table) 10/02/19 10/02/19 10/02/19 Range/Units 14:40 16:54 18:21 Neutrophils # (1.3-7.7) k/uL APTT (22.0-30.0) sec ABG pH (7.35-7.45) ABG pCO2 (35-45) mmHg ABG HCO3 (21-25) mmol/L ABG Total CO2 (19-24) mmol/L Sodium (137-145) mmol/L Chloride (98-107) mmol/L Carbon Dioxide (22-30) mmol/L BUN (7-17) mg/dL Creatinine (0.52-1.04) mg/dL Glucose (74-99) mg/dL POC Glucose (mg/dL) 219 H (75-99) mg/dL Plasma Lactic Acid Heath 2.4 H* (0.7-2.0) mmol/L Troponin I 15.300 H* (0.000-0.034) ng/mL 10/02/19 10/02/19 10/02/19 Range/Units 18:21 18:21 20:15 Neutrophils # (1.3-7.7) k/uL APTT 34.8 H (22.0-30.0) sec ABG pH (7.35-7.45) ABG pCO2 (35-45) mmHg ABG HCO3 (21-25) mmol/L ABG Total CO2 (19-24) mmol/L Sodium (137-145) mmol/L Chloride (98-107) mmol/L Carbon Dioxide (22-30) mmol/L BUN (7-17) mg/dL Creatinine (0.52-1.04) mg/dL Glucose (74-99) mg/dL POC Glucose (mg/dL) 255 H (75-99) mg/dL Plasma Lactic Acid Heath 2.8 H* (0.7-2.0) mmol/L Troponin I (0.000-0.034) ng/mL 10/02/19 10/02/19 10/03/19 Range/Units 22:41 22:41 02:10 Neutrophils # (1.3-7.7) k/uL APTT 35.3 H (22.0-30.0) sec ABG pH (7.35-7.45) ABG pCO2 (35-45) mmHg ABG HCO3 (21-25) mmol/L ABG Total CO2 (19-24) mmol/L Sodium (137-145) mmol/L Chloride (98-107) mmol/L Carbon Dioxide (22-30) mmol/L BUN (7-17) mg/dL Creatinine (0.52-1.04) mg/dL Glucose (74-99) mg/dL POC Glucose (mg/dL) (75-99) mg/dL Plasma Lactic Acid Heath 4.1 H* (0.7-2.0) mmol/L Troponin I 25.100 H* (0.000-0.034) ng/mL 10/03/19 10/03/19 10/03/19 Range/Units 06:09 06:35 06:35 Neutrophils # 7.8 H (1.3-7.7) k/uL APTT 36.3 H (22.0-30.0) sec ABG pH (7.35-7.45) ABG pCO2 (35-45) mmHg ABG HCO3 (21-25) mmol/L ABG Total CO2 (19-24) mmol/L Sodium (137-145) mmol/L Chloride (98-107) mmol/L Carbon Dioxide (22-30) mmol/L BUN (7-17) mg/dL Creatinine (0.52-1.04) mg/dL Glucose (74-99) mg/dL POC Glucose (mg/dL) 201 H (75-99) mg/dL Plasma Lactic Acid Heath (0.7-2.0) mmol/L Troponin I (0.000-0.034) ng/mL 10/03/19 10/03/19 10/03/19 Range/Units 06:35 11:12 11:41 Neutrophils # (1.3-7.7) k/uL APTT (22.0-30.0) sec ABG pH 7.34 L (7.35-7.45) ABG pCO2 25 L (35-45) mmHg ABG HCO3 14 L (21-25) mmol/L ABG Total CO2 14 L (19-24) mmol/L Sodium 136 L (137-145) mmol/L Chloride 109 H (98-107) mmol/L Carbon Dioxide 17 L (22-30) mmol/L BUN 30 H (7-17) mg/dL Creatinine 1.13 H (0.52-1.04) mg/dL Glucose 198 H (74-99) mg/dL POC Glucose (mg/dL) 228 H (75-99) mg/dL Plasma Lactic Acid Heath (0.7-2.0) mmol/L Troponin I (0.000-0.034) ng/mL 10/03/19 10/03/19 Range/Units 12:56 13:08 Neutrophils # (1.3-7.7) k/uL APTT 37.0 H (22.0-30.0) sec ABG pH (7.35-7.45) ABG pCO2 (35-45) mmHg ABG HCO3 (21-25) mmol/L ABG Total CO2 (19-24) mmol/L Sodium (137-145) mmol/L Chloride (98-107) mmol/L Carbon Dioxide (22-30) mmol/L BUN (7-17) mg/dL Creatinine (0.52-1.04) mg/dL Glucose (74-99) mg/dL POC Glucose (mg/dL) 198 H (75-99) mg/dL Plasma Lactic Acid Heath (0.7-2.0) mmol/L Troponin I (0.000-0.034) ng/mL Assessment and Plan Plan: -Shortness of breath: Possibly secondary to congestive heart failure ex acerbation and acute myocardial infarction which is non-ST elevation microinfarction patient had very low EF patient is known to have a low EF in the past, patient's lactic is doses improved although patient is going into respiratory failure was transferred to ICU continues to have chest pain contin ues to be on IV heparin, IV Lasix and nitro will undergo cardiac catheterization as per cardiology once patient's respiratory status improves. -Mildly elevated troponin with chest pressure and EKG changes cannot rule out non-ST elevation myocardial infarction, cardiology was consulted patient was st arted on aspirin, heparin and nitro patch. -Lactic acidosis: Secondary to decreased organ perfusion from acute myocardial infarction and decreased organ perfusion. Improved now. -Coronary artery disease his history of CABG in the past -Nicotine abuse: Counseling was provided -COPD without any acute exacerbation -Possible new-onset diabetes with us will obtain hemoglobin A1c is pending Mildly elevated liver enzymes secondary to hepatic congestion improved now -Anion gap metabolic acidosis secondary to lactic acidosis
--- NOTE | 2019-10-03 14:15 | P.CNPUL ---
History of Present Illness Consult date: 10/03/19 Requesting physician: Christofer Oropeza Reason for consult: hypoxemia, other (Pulmonary edema) Chief complaint: Shortness of breath History of present illness: This is a 79-year-old female with history of coronary artery disease, previous quadruple bypass surgery, in 2001. history of ischemic cardiomyopathy and congestive heart failure secondary to LV dysfunction, patient was brought into the ER on 10/02/2019, with 3 days history of increased shortness of breath, dyspnea on exertion, and she developed some discomfort across her upper scapula and shoulder areas. Patient could barely walk to her bathroom and she felt that her shortness of breath was getting more and more severe. Her initial EKG in the ER showed normal sinus rhythm mild ST elevation in the anterior leads and T- wave inversion in the lateral leads. Chest x-ray showed evidence of pulmonary edema. Patient was admitted to a monitor bed, placed on oxygen at 2 L/m, also placed on diuretics, however she wasn't improving much with diuresis, and she was seen by cardiology on consultation this morning. Chest x-ray showed worsening pulmonary edema, patient was transferred to the ICU, and I was asked to see her on consultation. Her BNP level on admission was 14,300. Troponin was 0.84, and her chest x-ray again showed pulmonary edema worsening compared to yesterday. After evaluating the patient, I recommended Lasix drip, she was given another dose of Lasix 40 mg IV push, and considering her metabolic acidosis I recommended an amp of sodium bicarb, and started the patient on a bicarb drip. Patient was seen by cardiology on consultation, and the plan is to stabilize the patient enough to the ICU, and possibly take the patient down for a cardiac catheterization hopefully today. During my evaluation, the patient had no chest pain, she readily received nitroglycerin and she was placed on nitroglycerin drip. She was also on heparin. Aspirin. Atorvastatin. And on beta blockers. Echocardiogram showed severe LV dysfunction with ejection fraction of 20%. Review of Systems CONSTITUTIONAL: No fever no chills no weight loss. HEENT: Denies any earache sore throat, diplopia or blurred vision CARDIOVASCULAR: As noted in HPI. PULMONARY: Shortness of breath, but no wheezing, no cough, no fever, no chills, no hemoptysis. GASTROINTESTINAL: No nausea vomiting abdominal pain melena no hematemesis. NEUROLOGICAL: No headache no blurred vision or dizziness. HEMATOLOGICAL: Denies any clotting bleeding or bruising GENITOURINARY: Denies any hematuria dysuria frequency urgency. MUSCULOSKELETAL/RHEUMATOLOGICAL: Denies any muscle aches or pains. ENDOCRINE: Denies any heat or cold intolerance. Denies any polyuria or polyphagia. No polydipsia.. Past Medical History Past Medical History: Heart Failure, Diabetes Mellitus History of Any Multi-Drug Resistant Organisms: None Reported Past Surgical History: Coronary Bypass/CABG Additional Past Surgical History / Comment(s): TRIPLE BYPASS Past Psychological History: No Psychological Hx Reported Smoking Status: Current every day smoker Past Alcohol Use History: None Reported Past Drug Use History: None Reported Medications and Allergies Home Medications Medication Instructions Recorded Confirmed Type Aspirin EC [Ecotrin Low Dose] 81 mg PO HS 10/02/19 10/02/19 History guaiFENesin [Mucinex] 600 mg PO Q12H PRN 10/02/19 10/02/19 History Allergies Allergy/AdvReac Type Severity Reaction Status Date / Time Sulfa (Sulfonamide Allergy Unknown Verified 10/02/19 14:19 Antibiotics) Physical Exam Vitals: Vital Signs Temp Pulse Pulse Resp BP BP Pulse Ox 10/03/19 13:00 65 28 H 106/58 95 10/03/19 12:45 76 32 H 101/79 94 L 10/03/19 12:30 71 27 H 85/48 92 L 10/03/19 12:15 99 32 H 105/87 93 L 10/03/19 12:00 98 38 H 98/83 91 L 10/03/19 11:45 99 38 H 94/83 94 L 10/03/19 11:30 96.9 F L 104 H 32 H 95/68 89 L 10/03/19 10:50 75 105/59 91 L 10/03/19 10:40 76 110/70 90 L 10/03/19 10:35 68 113/71 91 L 10/03/19 10:30 107 H 112/81 92 L 10/03/19 08:00 97.6 F 96 118/74 91 L 10/03/19 04:00 98.4 F 106 H 20 147/77 92 L 10/03/19 00:00 96.5 F L 104 H 22 122/69 93 L 10/02/19 20:00 96.0 F L 100 22 126/70 96 Intake and Output 10/02/19 10/03/19 10/03/19 22:59 06:59 14:59 Intake Total 405.397 63.823 117.816 Output Total 540 440 743 Balance -134.603 -376.177 -625.184 Intake: IV 20 0.9 normal saline at KVO 20 Intake, IV Titration 45.397 63.823 97.816 Amount Heparin Sod,Pork in 0.45% 45.397 63.823 97.816 NaCl 25,000 unit In 0.45 % NaCl 1 250ml.bag @ 12 UNITS/KG/HR 6.532 mls/hr IV .Q24H [facility] Rx#: [id number] Oral 360 Output: Urine 540 440 743 Other: Voiding Method Toilet Toilet Bedside Commode Bedside Commode # Voids 1 1 1 Weight 67 kg 67 kg Physical Exam: Revealed a 79-year-old female in no distress during my evaluation, however she was having lots of chest pain earlier before I saw her. Head: Atraumatic, normocephalic HEENT:[Neck is supple.] [No neck masses.] [No thyromegaly.] [No JVD.] Chest: [Symmetrical chest expansion, crackles at the bases, no rhonchi and no wheezes.] Cardiac Exam: [Normal S1 and S2, no S3 gallop, no murmur.] Abdomen: [Soft, nontender, no megaly, no rebound, no guarding, normal bowel sounds.] Extremities: [No clubbing, no edema, no cyanosis.] Neurological Exam: Alert and oriented 3, no gross focal neurologic deficits. Psychiatric: Normal mood, affect and normal mental status examination. Skin: No rashes Results - Laboratory Findings CBC and BMP: 10/03/19 06:35 10/03/19 06:35 ABG ABG pH 7.34 (7.35-7.45) L 10/03/19 11:41 ABG pCO2 25 mmHg (35-45) L 10/03/19 11:41 ABG pO2 83 mmHg (83-108) 10/03/19 11:41 ABG O2 Saturation 94.7 % (94-97) 10/03/19 11:41 PT/INR, D-dimer PT 11.5 sec (9.0-12.0) 10/03/19 06:35 INR 1.1 (<1.2) 10/03/19 06:35 Abnormal lab findings: Abnormal Labs 10/02/19 10/02/19 10/02/19 10:56 10:56 10:56 Neutrophils # APTT 21.1 L ABG pH ABG pCO2 ABG HCO3 ABG Total CO2 VBG pH VBG HCO3 Sodium 136 L Chloride 108 H Carbon Dioxide 17 L BUN 21 H Creatinine Glucose 301 H POC Glucose (mg/dL) Plasma Lactic Acid Heath 3.9 H* AST 64 H ALT 40 H Troponin I Total Protein 6.1 L 10/02/19 10/02/19 10/02/19 10:56 10:57 14:40 Neutrophils # APTT ABG pH ABG pCO2 ABG HCO3 ABG Total CO2 VBG pH 7.25 L VBG HCO3 16 L Sodium Chloride Carbon Dioxide BUN Creatinine Glucose POC Glucose (mg/dL) Plasma Lactic Acid Heath 2.4 H* AST ALT Troponin I 0.849 H* Total Protein 10/02/19 10/02/19 10/02/19 16:54 18:21 18:21 Neutrophils # APTT 34.8 H ABG pH ABG pCO2 ABG HCO3 ABG Total CO2 VBG pH VBG HCO3 Sodium Chloride Carbon Dioxide BUN Creatinine Glucose POC Glucose (mg/dL) 219 H Plasma Lactic Acid Heath AST ALT Troponin I 15.300 H* Total Protein 10/02/19 10/02/19 10/02/19 18:21 20:15 22:41 Neutrophils # APTT ABG pH ABG pCO2 ABG HCO3 ABG Total CO2 VBG pH VBG HCO3 Sodium Chloride Carbon Dioxide BUN Creatinine Glucose POC Glucose (mg/dL) 255 H Plasma Lactic Acid Heath 2.8 H* AST ALT Troponin I 25.100 H* Total Protein 10/02/19 10/03/19 10/03/19 22:41 02:10 06:09 Neutrophils # APTT 35.3 H ABG pH ABG pCO2 ABG HCO3 ABG Total CO2 VBG pH VBG HCO3 Sodium Chloride Carbon Dioxide BUN Creatinine Glucose POC Glucose (mg/dL) 201 H Plasma Lactic Acid Heath 4.1 H* AST ALT Troponin I Total Protein 10/03/19 10/03/19 10/03/19 06:35 06:35 06:35 Neutrophils # 7.8 H APTT 36.3 H ABG pH ABG pCO2 ABG HCO3 ABG Total CO2 VBG pH VBG HCO3 Sodium 136 L Chloride 109 H Carbon Dioxide 17 L BUN 30 H Creatinine 1.13 H Glucose 198 H POC Glucose (mg/dL) Plasma Lactic Acid Heath AST ALT Troponin I Total Protein 10/03/19 10/03/19 10/03/19 11:12 11:41 12:56 Neutrophils # APTT ABG pH 7.34 L ABG pCO2 25 L ABG HCO3 14 L ABG Total CO2 14 L VBG pH VBG HCO3 Sodium Chloride Carbon Dioxide BUN Creatinine Glucose POC Glucose (mg/dL) 228 H 198 H Plasma Lactic Acid Heath AST ALT Troponin I Total Protein 10/03/19 13:08 Neutrophils # APTT 37.0 H ABG pH ABG pCO2 ABG HCO3 ABG Total CO2 VBG pH VBG HCO3 Sodium Chloride Carbon Dioxide BUN Creatinine Glucose POC Glucose (mg/dL) Plasma Lactic Acid Heath AST ALT Troponin I Total Protein - Diagnostic Findings Chest x-ray: image reviewed (Evidence of pulmonary edema.) Assessment and Plan Assessment: Impression: Acute hypoxic respiratory failure secondary to pulmonary edema secondary to ischemic cardiomyopathy and LV dysfunction. Acute non-ST elevation myocardial infarction. Severe cardiomyopathy and LV dysfunction. History of coronary artery disease and quadruple bypass surgery. COPD but no acute exacerbation. Elevated liver enzymes secondary to hepatic congestion secondary to cardiomyopathy and LV dysfunction. Acute and I am gap metabolic acidosis secondary to hypoperfusion and LV dysfunction. Strongly doubt sepsis Recommendation: Continue to monitor in the ICU. Continue heparin aspirin statins and beta blockers and nitroglycerin. Continue Lasix drip. Continue sodium bicarb, will likely discontinue once her acidosis corrects. Cardiology to address urgent cardiac catheterization and possibly stenting Close monitoring in the ICU, consider intubation if her condition gets any worse. In the meantime titrate oxygen accordingly and maintain O2 saturation above 93%. We'll continue to follow, prognosis is definitely guarded. GI and DVT prophylaxis Time with Patient: Greater than 30
[2019-10-03] MEDS ORDERED: PANTOPRAZOLE 40 MG/10 ML VIAL IVP SCH (14:30)
[2019-10-03] MEDS: HEPARIN SOD,PORK IN 0.45% NACL 25,000 UNIT in 0.45% NACL 1 250ML.BAG IV SCH (17:00)
[2019-10-03 17:07] LABS: Glucose,Whole Blood 247 mg/dL (75-99)
[2019-10-03] MEDS ORDERED: NALOXONE 0.4 MG/ML 1 ML VIAL IV PRN (17:19)
[2019-10-03 18:30] LABS: Hemoglobin A1C 7.2 % (4.0-6.0)
[2019-10-03 20:48] LABS: Glucose,Whole Blood 282 mg/dL (75-99)
[2019-10-04 00:04] VITALS: TEMP 98
[2019-10-04 01:10] VITALS: BP 103/74; PULSE 81; RESP 23
[2019-10-04 02:23] LABS: Glucose,Whole Blood 248 mg/dL (75-99)
--- NOTE | 2019-10-04 02:53 | P.PN ---
Progress Note - Text Progress Note Date: 10/04/19 Code Jannie Service Note Code jannie called @ 01:41. Upon arrival at the scene, the patient was undergoing CPR. An advanced airway was placed by anesthesiology. The patient had a pulse for very brief periods of time, after which she would go into asystole or PEA. The patient was given Atropine IVP x 5, epinephrine IVP x 6, epinephrine infusion, dopamine infusion, bicarb IVP x 2, and 1L of NS. She was pronounced at 02:23. Discussed with and provided support to the family (daughter) in- person. Cardiology and ICU services aware. General: Elderly F, in no acute distress, appears stated age, normal weight HEENT: NC/AT, pupils dilated and non-reactive Cardiovascular: No heart sounds appreciated, no carotid or femoral pulses noted Lungs: No breath sounds appreciated Abdominal: Soft, non-distended Neuro: Unresponsive to stimuli, no spontaneous movements noted
--- NOTE | 2019-10-04 09:23 | P.DS ---
Providers Date of admission: 10/02/19 12:47 Attending physician: Christofer Oropeza Consults: 10/02/19 12:42 Consult Physician Urgent Consulting Provider: Donaldo Prasad Consult Reason/Comments: CHF Do you want consulting provider notified?: Yes 10/03/19 11:41 Consult Physician Urgent Consulting Provider: Isauro Robertson Consult Reason/Comments: ICU management Do you want consulting provider notified?: Yes 10/03/19 18:49 Consult Physician Urgent Consulting Provider: Iwona Ny Consult Reason/Comments: decreased urine output, increased creatinine Do you want consulting provider notified?: Yes Primary care physician: Velia Palmer Hospital Course: Patient was admitted for a secondary to acute myocardial infarction and congestive heart failure exacerbation, ischemic cardiomyopathy. Patient was transferred to ICU because of her worsening respiratory status patient subsequently coded with pulseless electrical activity and after unsuccessful attempts for 40 minutes patient was pronounced at that earlier today morning please refer to the physician documentation for details of exact time of . Preliminary cause of acute myocardial infarction Patient Condition at Discharge: Serious Plan - Discharge Summary Discharge Rx Participant: Yes New Discharge Prescriptions: No Action guaiFENesin [Mucinex] 600 mg PO Q12H PRN PRN Reason: Cold Symptoms Aspirin EC [Ecotrin Low Dose] 81 mg PO HS Discharge Medication List Aspirin EC [Ecotrin Low Dose] 81 mg PO HS 10/02/19 [History] guaiFENesin [Mucinex] 600 mg PO Q12H PRN 10/02/19 [History] Follow up Appointment(s)/Referral(s): Velia Palmer DO [Primary Care Provider] - 1-2 days Discharge Disposition: - Preliminary Cause of Preliminary Cause of : Acute myocardial infarction
== END 2019-10-04 06:52 | disposition expired ==
LOC: EC 10:19 → 3SCARD 12:47 → 2SICU 10-03 11:31
PROVIDERS: ADMIT Internal Medicine; ATTEND Internal Medicine
PROC: 5A1935Z Respiratory Ventilation, Less than 24 Consecutive Hours (ICD-10-PCS; principal; 2019-10-04)
PROC: 0BH18EZ Insertion of Endotracheal Airway into Trachea, Via Natural or Artificial Opening Endoscopic (ICD-10-PCS; principal; 2019-10-04)
DX: I21.4 Non-ST elevation (NSTEMI) myocardial infarction (principal); I50.23 Acute on chronic systolic (congestive) heart failure; J96.01 Acute respiratory failure with hypoxia; E87.2 Acidosis; I11.0 Hypertensive heart disease with heart failure; E11.65 Type 2 diabetes mellitus with hyperglycemia; E78.5 Hyperlipidemia, unspecified; F17.200 Nicotine dependence, unspecified, uncomplicated; H91.90 Unspecified hearing loss, unspecified ear; I25.10 Atherosclerotic heart disease of native coronary artery without angina pectoris; I25.5 Ischemic cardiomyopathy; I46.9 Cardiac arrest, cause unspecified; I48.0 Paroxysmal atrial fibrillation; J44.9 Chronic obstructive pulmonary disease, unspecified; K76.1 Chronic passive congestion of liver; Z79.82 Long term (current) use of aspirin; Z86.73 Personal history of transient ischemic attack (TIA), and cerebral infarction without residual deficits; Z95.1 Presence of aortocoronary bypass graft; Z88.2 Allergy status to sulfonamides; Z71.6 Tobacco abuse counseling; Z91.14 Patient's other noncompliance with medication regimen
CPT/HCPCS: 36415; 36600; 71045; 71046; 80048; 80053; 82009; 82803; 82805; 83036; 83605; 83690; 83735; 83880; 84484; 85025; 85610; 85730; 93005; 93306; 94640; 94770; 96365; 96375; 96376; 99291